=== PATIENT | female | born 1990 | race Caucasian/White ===

== ENCOUNTER 2017-04-18 16:02 | Outpatient (CLI) | payer OTHER ==
--- NOTE | 2017-04-18 16:31 | RADRPT ---
PROCEDURE: OB ultrasound for biophysical profile CLINICAL INDICATION: Gestational diabetes TECHNIQUE: Multiple sonographic images of the pelvis were obtained. Transabdominal views of the g ravid uterus are available for review. The images were reviewed on a PACS workstation. COMPARISON: None FINDINGS: breathing movement = 2/2 tone = 2/2 motion = 2/2 DENISE = 2/2 DENISE = 14.5 cm Single live intrauterine with cardiac activity of 136 bpm. position is cephal ic. The placenta is anterior. IMPRESSION: 1. Single live intrauterine gestation. 2. Biophysical profile = 8/8. 3. DENISE = 14.5 cm. RPTAT: HH .Audra Goodwin MD, MD Date Time Electronically viewed and signed by .Audra Goodwin MD, on 04/18/2017 16:30 .G/
[2017-04-18] MEDS ORDERED: PREN-93 PO (16:59)
[2017-04-18] MEDS ORDERED: FER325 PO (16:59)
--- NOTE | 2017-04-18 17:19 | TRIAGE ---
OB Triage Datetime Report Generated by CPN: 04/18/2017 17:19 Datetime: 04/18/2017 16:57 Assessment Type: Triage Maternal Assessment Level of Consciousness: Fully Conscious DTR's/Clonus: DTRs 2+; No Clonus Headache: Denies Blurred Vision: No Respiratory Effort: Unlabored; Regular Rhythm; Equal Expansion Breath Sounds, Left: Clear and Equal Breath Sounds, Right: Clear and Equal Nausea/Vomiting: Denies RUQ Epigastric Pain: Denies Lower Extremities Edema: None Degree: None Upper Extremities Edema: None Degree: None Facial Edema: None Fall Risk Assessment History of Falling: (0) No Secondary Diagnosis: (0) No Ambulatory Aid: (0) Bedrest/Nurse Assist IV Therapy: (0) No Gait: (0) Normal/Bedrest/Immobile Mental Status: (0) Oriented to Own Ability Fall Score: 0 Fall Risk Score Definition: No Risk: No action required Datetime: 04/18/2017 16:45 Labor Evaluation Monitor Mode: External Heart Rate Monitor Mode: External US Datetime: 04/15/2017 15:17 Time of Arrival: 04/18/2017 15:57 EGA: 35.3 Arrived By: Ambulatory Arrived From: Home Chief Complaint: pt here for NST/BPP FOR GDM Movement: Present Contractions: Denies/Absent Rupture of Membranes: Denies Vaginal Bleeding: None Vaginal Discharge: Denies Recent Sexual Intercouse: Denies Abdominal Trauma: Not Applicable Patient Complaints: None Time Provider Notified: 04/18/2017 17:05 Provider Notified: ROGELIO Initial Plan: NST/BPP
[2017-04-18] MEDS ORDERED: NPH,100V SQ (17:24)
[2017-04-18] MEDS ORDERED: INSU100C SQ ×2 (17:24)
[2017-04-18] MEDS ORDERED: NPH SQ (17:24)
--- NOTE | 2017-04-18 17:31 | PN ---
Triage Information Date/Time Reason for visit: Antepartum testing Weeks of Gestation 35 weeks /Para Diabetes: gestational Diabetes management: insulin controlled Hypertention: none Objective Heart Rate: 130's Heart Rate Comments Category I Results/Medications Imaging Results [facility] 12/30 Disposition: Discharge SCOTT MERCADO MD Apr 18, 2017 17:31
== END 2017-04-18 17:35 | disposition home or self-care (01) ==
LOC: OBT 16:02 → L-D 16:03 → OBT 17:35
PROVIDERS: ATTEND Obstetrics & Gynecology
DX: O24.414 Gestational diabetes mellitus in pregnancy, insulin controlled (principal); Z3A.35 35 weeks gestation of pregnancy
CPT/HCPCS: 76818; Z7500; G0463

== ENCOUNTER 2017-05-13 05:56 | Inpatient (IN) | payer OTHER ==
[~2017-05-13] VITALS: Ht 162.6 cm; Wt 97.9 kg
[~2017-05-13 05:56] MED LIST: FER325 PO; INSU100C SQ; NPH SQ; NPH,100V SQ; PREN-93 PO
[2017-05-13] MEDS ORDERED: LACTATED RINGER'S 1,000 ML IV SCH (06:10)
[2017-05-13 06:11] VITALS: Ht 162.6 cm; Wt 97.9 kg
[2017-05-13 06:19] VITALS: BP 136/89; PULSE 66; RESP 18
[2017-05-13] MEDS ORDERED: OXYTOCIN 30 UNITS/LR 500 ML IV PRN ×2 (06:30→14:30)
[2017-05-13] MEDS ORDERED: MISOPROSTOL 200 MCG TAB PR PRN ×2 (06:30→14:30)
[2017-05-13] MEDS ORDERED: CEFAZOLIN 2 GM/50 ML (PMX) 50 ML IV SCH (06:30)
[2017-05-13] MEDS ORDERED: METHYLERGONOVINE 0.2 MG INJ IM PRN ×2 (06:30→14:30)
[2017-05-13] MEDS ORDERED: CARBOPROST 250 MCG INJ IM PRN ×2 (06:30→14:30)
[2017-05-13] MEDS ORDERED: CALC-143 PO (06:35)
[2017-05-13] MEDS ORDERED: NPH,100V SQ (06:36)
[2017-05-13 06:40] LABS: BASOPHILS % 0.3 % (0.0-2.0); EOSINOPHILS # 0.2 10^3/ul (0.0-0.5); EOSINOPHILS % 1.5 % (0.0-7.0); HEMATOCRIT 36.6 % (37.0-47.0); HEMOGLOBIN 12.8 g/dl (12.0-16.0); LYMPHOCYTES # 2.3 10^3/ul (0.8-2.9); LYMPHOCYTES % 22.5 % (15.0-51.0); MEAN CORPUSCULAR HEMOGLOBIN 28.7 pg (29.0-33.0); MEAN CORPUSCULAR VOLUME 82.1 fl (82.0-101.0); MEAN PLATELET VOLUME 11.8 fl (7.4-10.4); MONOCYTE # 0.4 10^3/ul (0.3-0.9); MONOCYTES % 3.7 % (0.0-11.0); NEUTROPHIL # 7.1 10^3/ul (1.6-7.5); NEUTROPHILS % 70.6 % (39.0-77.0); PLATELET COUNT 245 10^3/UL (140-415); RED BLOOD COUNT 4.46 10^6/ul (4.20-5.40)
[2017-05-13 07:00] LABS: INR 0.89; PROTIME 12.1 Sec (11.9-14.9); PT RATIO 0.9
[2017-05-13 07:01] LABS: PARTIAL THROMBOPLASTIN TIME 31.5 Sec (25.0-35.0)
[2017-05-13] MEDS ORDERED: LACTATED RINGER'S 1,000 ML IV ONE (07:18)
[2017-05-13] MEDS ORDERED: CITRIC ACID/SODIUM CITRATE 15 ML CUP ONE (07:22)
[2017-05-13] MEDS ORDERED: FAMOTIDINE 20 MG INJ ONE (07:23)
[2017-05-13] MEDS ORDERED: METOCLOPRAMIDE 10 MG INJ ONE (07:24)
[2017-05-13] MEDS ORDERED: FAMOTIDINE 20 MG INJ IV ONE (07:30)
[2017-05-13] MEDS ORDERED: METOCLOPRAMIDE 10 MG INJ IV ONE (07:30)
[2017-05-13] MEDS ORDERED: CITRIC ACID/SODIUM CITRATE 15 ML CUP PO ONE (07:30)
--- NOTE | 2017-05-13 07:52 | HP ---
Date/Time of Note Date/Time of Note DATE: 05/13/17 TIME: 07:50 OB - History Hx of Present Chief Complaint: scheduled c/s Estimated Due Date: May 20, 2017 : 3 Para: 1 Spontaneous : 1 Therapeutic : 0 Care: Good Care Ultrasounds: Normal mid trimester US Obstetrical Complications: Gestational Diabetes Medical Complications: None Past Family/Social History * Past Medical, Surgical, Family and Obstetric Histories reviewed from chart. GBS Status: Positive OB Admission Exam Vital Signs Vital Signs Vital Signs Date Time Temp Pulse Resp B/P Pulse Ox O2 Delivery O2 Flow Rate FiO2 05/13/17 06:19 98.0 66 18 136/89 99 Room Air Physical Exam HEENT: WNL Heart: Rhythm Normal Lungs: Clear, Equal Abdomen: WNL Extremities: Normal Reflexes: Normal Heart Rate: 120's Decelerations: No Decelerations Varibility: Moderate Last 72 hours Lab Results CBC & BMP 05/13/17 06:30 OB Assessment/Plan Reason for admission: section Plan: Section SCOTT MERCADO MD May 13, 2017 07:52
[2017-05-13] MEDS ORDERED: morphine SULFATE/PF (10 MG/10 ML) INJ ONE (07:57)
[2017-05-13] MEDS ORDERED: FENTAnyl 50 MCG/ML VIAL ONE (07:57)
[2017-05-13] MEDS ORDERED: PHENYLephrine (100 MCG/ML) 5ML SYG ONE (08:13)
[2017-05-13] MEDS ORDERED: PROCHLORPERAZINE 10 MG INJ IV PRN (08:30)
[2017-05-13] MEDS ORDERED: NALOXONE (0.4 MG/ML) INJ IV PRN (08:30)
[2017-05-13] MEDS ORDERED: HYDROmorphONE 0.5 MG/0.5 ML SYG IV PRN ×2 (08:30)
[2017-05-13] MEDS ORDERED: MEPERIDINE 25 MG INJ IV PRN (08:30)
[2017-05-13] MEDS ORDERED: DIPHENHYDRAMINE 50 MG INJ IV PRN ×2 (08:30)
[2017-05-13] MEDS ORDERED: ONDANSETRON 4 MG INJ IV PRN ×2 (08:30)
[2017-05-13] MEDS ORDERED: FENTAnyl 50 MCG/ML VIAL IV PRN ×3 (08:30)
[2017-05-13] MEDS ORDERED: ZOLPIDEM 5 MG TAB PO PRN (08:30)
[2017-05-13] MEDS ORDERED: HYDROmorphONE (0.2 MG/ML) 10ML SYG IV PRN ×3 (08:30)
[2017-05-13] MEDS ORDERED: KETOROLAC 30 MG INJ IV PRN (08:30)
[2017-05-13] MEDS ORDERED: ONDANSETRON 4 MG INJ ONE (08:31)
[2017-05-13] MEDS ORDERED: EPHEDrine SULFATE 50 MG/5 ML SYG ONE (08:36)
[2017-05-13] MEDS ORDERED: OXYTOCIN 30 UNITS/LR 500 ML IV ONE (08:49)
--- NOTE | 2017-05-13 09:40 | OPPN ---
Date/Time of Note Date/Time of Note DATE: 05/13/17 TIME: 09:38 Operative Report Planned Procedure Procedure date May 13, 2017 Procedure(s) Repeat c/s Performed by Scott Mercado MD Division Sergeant Dr Mccallum Anesthesiologist: KAITY GAMEZ MD Pre-procedure diagnosis Previous c/s Anesthesia Type: spinal Post-Procedure Post-procedure diagnosis Same Findings Live Baby [], Apgars [] and [], weight [], position [], [] presentation []cord. Estimated Blood Loss: 500 - 600 mls (600 ml) Specimen(s) none Grafts/Implant(s) none Complication(s) none SCOTT MERCADO MD May 13, 2017 09:40
[2017-05-13 09:51] LABS: ALBUMIN/GLOBULIN RATIO 0.71; BILIRUBIN,INDIRECT 0.6 mg/dl (0-1.1); BILIRUBIN,TOTAL 0.6 mg/dl (0.2-1.3); CREATININE 0.82 mg/dl (0.44-1.00); POTASSIUM 4.3 mmol/L (3.5-5.1); TOTAL PROTEIN 7.2 g/dl (6.1-8.1)
[2017-05-13 10:23] LABS: ADD UMIC NO; UR ASCORBIC ACID NEGATIVE (NEGATIVE); UR BILIRUBIN (Dip) NEGATIVE (NEGATIVE); UR BLOOD (Dip) NEGATIVE (NEGATIVE); UR CLARITY CLEAR (CLEAR); UR COLOR YELLOW (YELLOW); UR GLUCOSE (Dip) NEGATIVE (NEGATIVE); UR KETONES (Dip) NEGATIVE (NEGATIVE); UR LEUKOCYTE ESTERASE (Dip) NEGATIVE Leu/ul (NEGATIVE); UR NITRITE (Dip) NEGATIVE (NEGATIVE); UR SPECIFIC GRAVITY (Dip) 1.013 (1.003-1.030); UR TOTAL PROTEIN (Dip) NEGATIVE (NEGATIVE); UR UROBILINOGEN (Dip) NEGATIVE (NEGATIVE)
--- NOTE | 2017-05-13 10:42 | OPR ---
DATE OF OPERATION: 05/13/2017 PREOPERATIVE DIAGNOSES: 1. at 39 weeks with insulin-dependent diabetes. 2. Previous section. POSTOPERATIVE DIAGNOSES: 1. at 39 weeks with insulin-dependent diabetes. 2. Previous section. OPERATION PERFORMED: Repeat low transverse section. SURGEON: Dr. Mayes OSHA INSPECTOR: Elijah Mccallum MD ANESTHESIA: Spinal. ANESTHESIOLOGIST: Dr. Tompkins PROCEDURE: The patient was taken to the operating room and placed on the operating table. After noguera ccessful spinal anesthesia was given, the patient was placed in supine position. The area was prepa red and draped in the usual sterile fashion. Spinal anesthesia was tested and was satisfactory. Us ing a scalpel, Pfannenstiel incision was made about , incision was carried down to the fascia. The fascia was incised and extended bilaterally with Huffman scissors. Two Radha's were used to sepa rate the fascia from the muscle. The muscle was dissected down to peritoneum. The peritoneum was s ecured with 2 Kellys and incised with Metzenbaum scissors. Using a scalpel, a small transverse inci staci was made in the lower segment of the uterus. Upon entering the uterine cavity, bandage scissor s were inserted to extend the incision bilaterally, curved up. Baby was delivered from cephalic presentation. After suctioning clear of amniotic fluid, the baby w as handed off to the team in attendance. Apgars were 8 and 9. Placenta was delivered with out difficulty. Uterus was closed with #1 Monocryl continuous locked. After assuring hemostasis, b oth ovaries and tubes were inspected, all looked normal. The peritoneum was closed with 2-0 Vicryl continuous. The fascia was closed with #1 Vicryl continuous in 2 segments. Subcutaneous tissue was reapproximated with 2-0 plain, skin was closed with tuan. ESTIMATED BLOOD LOSS: 600 mL. COUNTS: All counts were correct. Dictated By: SCOTT MAYES MD GD/NTS Conf#: [id number] DID#: [id number] CC: ELIJAH MCCALLUM MD;*EndCC*
[2017-05-13] MEDS: KETOROLAC 30 MG INJ IV PRN (11:00)
[2017-05-13] MEDS: OXYTOCIN 30 UNITS/LR 500 ML IV SCH ×2 (11:23→13:12)
[2017-05-13] MEDS ORDERED: OXYTOCIN 30 UNITS/LR 500 ML IV SCH (14:08)
[2017-05-13] MEDS: LACTATED RINGER'S 1,000 ML IV SCH ×2 (14:08→22:13)
[2017-05-13 14:10] VITALS: BP 128/71; PULSE 78; RESP 18
[2017-05-13] MEDS ORDERED: LANOLIN 7 GM TUBE TOP PRN (14:30)
[2017-05-13] MEDS ORDERED: OXYCODONE/ACETAMINOPHEN (5/325) TAB PO PRN ×2 (14:30)
[2017-05-13 16:00] VITALS: BP 146/76; PULSE 73; RESP 18
[2017-05-13 20:00] VITALS: BP 132/82; PULSE 20; RESP 20
[2017-05-13] MEDS: SENNA/DOCUSATE NA (8.6MG/50MG) TAB PO SCH (21:00)
[2017-05-13] MEDS: IBUPROFEN 800 MG TAB PO SCH (22:00)
[2017-05-14] VITALS (7 sets, daily range): BP systolic 116–144; BP diastolic 61–100; PULSE 51–76; RESP 18–20
[2017-05-14] MEDS: KETOROLAC 30 MG INJ IV PRN (00:10)
[2017-05-14] MEDS: IBUPROFEN 800 MG TAB PO SCH ×3 (06:00→21:28)
[2017-05-14] MEDS: LACTATED RINGER'S 1,000 ML IV SCH ×2 (06:20→14:08)
[2017-05-14] MEDS: FERROUS SULFATE (EC) 325 MG TAB PO SCH (09:34)
[2017-05-14] MEDS: SENNA/DOCUSATE NA (8.6MG/50MG) TAB PO SCH ×2 (09:35→21:28)
[2017-05-14 10:06] LABS: BASOPHILS % 0.4 % (0.0-2.0); EOSINOPHILS # 0.1 10^3/ul (0.0-0.5); EOSINOPHILS % 0.6 % (0.0-7.0); HEMATOCRIT 30.3 % (37.0-47.0); HEMOGLOBIN 10.1 g/dl (12.0-16.0); LYMPHOCYTES % 20.4 % (15.0-51.0); MEAN CORPUSCULAR HEMOGLOBIN 27.8 pg (29.0-33.0); MEAN CORPUSCULAR HGB CONC 33.3 g/dl (32.0-37.0); MEAN CORPUSCULAR VOLUME 83.5 fl (82.0-101.0); MEAN PLATELET VOLUME 11.7 fl (7.4-10.4); MONOCYTE # 0.3 10^3/ul (0.3-0.9); MONOCYTES % 3.5 % (0.0-11.0); NEUTROPHIL # 7.2 10^3/ul (1.6-7.5); NEUTROPHILS % 74.3 % (39.0-77.0); PLATELET COUNT 235 10^3/UL (140-415); RED BLOOD COUNT 3.63 10^6/ul (4.20-5.40); RED CELL DISTRIBUTION WIDTH 13.9 % (11.5-14.5); WHITE BLOOD COUNT 9.7 10^3/ul (4.8-10.8)
--- NOTE | 2017-05-14 20:45 | QN ---
Documentation Comment No complaint Afebrile VSS Abdomen soft ND POD #1 Stable Ambulate Advance diet. SCOTT MERCADO MD May 14, 2017 20:45
[2017-05-15] VITALS: BP 129/69; RESP 18
[2017-05-15 04:00] VITALS: BP 130/65; PULSE 67; RESP 18
[2017-05-15] MEDS: IBUPROFEN 800 MG TAB PO SCH ×3 (05:24→21:25)
[2017-05-15 08:00] VITALS: BP 130/67; PULSE 73; RESP 20
[2017-05-15] MEDS: SENNA/DOCUSATE NA (8.6MG/50MG) TAB PO SCH ×2 (08:30→21:25)
[2017-05-15] MEDS: FERROUS SULFATE (EC) 325 MG TAB PO SCH (08:31)
[2017-05-15] MEDS ORDERED: INFLUENZA VIRUS VACCINE 0.5 ML (DISPENSING) IM* ONE (09:00)
--- NOTE | 2017-05-15 11:05 | QN ---
Documentation Comment No complaint Afebrile VSS Abdomen soft ND POD #2 Stable Continue present care Endocrinology consult for management of DM. SCOTT MERCADO MD May 15, 2017 11:05
[2017-05-15 12:25] VITALS: BP 135/77; PULSE 78; RESP 20
--- NOTE | 2017-05-15 15:02 | CONS ---
Date/Time of Note Date/Time of Note DATE: 05/15/17 TIME: 14:57 Assessment/Plan Assessment/Plan Problems: (1) Metabolic syndrome Status: Chronic Comment: She had had previous gestational glucose intolerance. 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 I have counseled her and her spouse about the rationale for treatment risks and benefits of treatment and goals of treatment. Ideally a slow gradual weight loss protocol to be within 20% of her ideal body weight would be ideal. In the meantime she will be on low-dose metformin. Please note this patient is not planning to breast- feed (2) Gestational diabetes mellitus Status: Resolved Comment: She is now . We are going to switch over to an oral regimen. Qualifiers: Qualified Code: O24.414 - Insulin controlled gestational diabetes mellitus ( GDM) in third trimester (3) History of section Onset Date: ~ 05/13/2017 Comment: Noted and recovering well Consultation Date/Type/Reason Admit Date/Time May 13, 2017 at 05:56 Date of Consultation: May 15, 2017 Type of Consultation: Endocrinology Reason for Consultation History of gestational diabetes who came in with diabetic . Referring Provider: SCOTT MERCADO MD Hx of Present Illness Karli 27-year-old female Ab1 immediately post C- section. In her last successful she had had gestational diabetes which resolved . Please note she does not see doctors and so her exact knowledge of what her status was may not have been fully negative it simply unknown. Constitutional: no complaints Eyes: no complaints ENT: no complaints Respiratory: no complaints Cardiovascular: no complaints Gastrointestinal: no complaints Genitourinary: no complaints Past Medical History Medical History: other (Gestational diabetes; Ab1) Past Surgical History Past Surgical Hx: other Family History Significant Family History: diabetes Social History Alcohol Use: none Smoking Status: Never smoker Drug Use: none Exam/Review of Systems Vital Signs Vitals Vital Signs Date Time Temp Pulse Resp B/P Pulse Ox O2 Delivery O2 Flow Rate FiO2 05/15/17 08:00 98.0 73 20 130/67 Room Air 05/14/17 08:16 97 21 Intake and Output 05/14/17 05/14/17 05/15/17 15:00 23:00 07:00 Intake Total 125 ml 380 ml Output Total 800 ml Balance -675 ml 380 ml Exam Constitutional: alert, oriented Neck: non-tender, supple Respiratory: clear to auscultation, normal air movement Cardiovascular: nl pulses, regular rate and rhythm Gastrointestinal: soft Skin: other (Pseudo-acanthosis nigricans) Results Result Diagram: 05/14/17 0939 05/13/17 0630 Results 24 hrs Laboratory Tests Test 05/14/17 22:04 05/15/17 08:04 Bedside Glucose 215 116 Medications Medications Current Medications Oxycodone/ Acetaminophen (Percocet (5/ 325)) 1 tab Q4H PRN PO PAIN LEVEL 4-6; Start 05/13/17 at 14:30 Oxycodone/ Acetaminophen (Percocet (5/ 325)) 2 tab Q4H PRN PO PAIN LEVEL 7-10 Last administered on 05/14/17 09:36; Admin Dose 2 TAB; Start 05/13/17 at 14: 30 Ibuprofen (Motrin) 800 mg Q8 PO Last administered on 05/15/17 14:08; Admin Dose 800 MG; Start 05/13/17 at 22:00 Simethicone (Mylicon) 160 mg Q8H PRN PO DISTENSION/GAS/BLOATING Last administered on 05/14/17 09:36; Admin Dose 160 MG; Start 05/13/17 at 14:30 Senna/Docusate Sodium (Senokot-S) 1 tab BID PO Last administered on 05/15/17 08:30; Admin Dose 1 TAB; Start 05/13/17 at 21:00 Diphtheria/ Tetanus/Acell Pertussis 0.5 ml 0.5 ml ONCE ONCE IM* ; Start at 09:00; Stop 05/16/17 at 09:01 Oxytocin/Lactated Ringer's 500 ml @ 0 mls/hr ONCE PRN IV For Hemorrhage Management; Start 05/13/17 at 14:30 Methylergonovine Maleate (Methergine) 0.2 mg ONCE PRN IM VAGINAL BLEEDING; Start 05/13/17 at 14:30 Carboprost Tromethamine (Hemabate) 250 mcg ONCE PRN IM VAGINAL BLEEDING; Start 05/13/17 at 14:30 Misoprostol (Cytotec) 1,000 mcg ONCE PRN VT VAGINAL BLEEDING; Start 05/13/17 at 14:30 Ferrous Sulfate (Ferrous Sulfate (Ec)) 325 mg DAILY PO Last administered on t 08:31; Admin Dose 325 MG; Start 05/14/17 at 09:00 EDMUNDO WOLFF MD May 15, 2017 15:02
[2017-05-15] MEDS ORDERED: GLUCOSE GEL 15 GRAM TUBE PO PRN ×2 (15:30)
[2017-05-15] MEDS ORDERED: GLUCOSE GEL 15 GRAM TUBE BUCCAL PRN (15:30)
[2017-05-15] MEDS ORDERED: DEXTROSE 50% 50 ML SYRINGE IV PRN ×2 (15:30)
[2017-05-15] MEDS ORDERED: GLUCAGON 1 MG INJ IM PRN (15:30)
[2017-05-15 16:00] VITALS: BP 130/66; RESP 18
[2017-05-15] MEDS: metFORMIN 500 MG TAB PO SCH (18:04)
[2017-05-15 20:10] VITALS: PULSE 62; RESP 18
[2017-05-16] VITALS (7 sets, daily range): BP systolic 137–155; BP diastolic 78–92; PULSE 52–84; RESP 18–20
[2017-05-16] MEDS: IBUPROFEN 800 MG TAB PO SCH ×3 (05:56→21:31)
[2017-05-16] MEDS ORDERED: DIPHTH/TET/ACEL PERTUSS (ADULT) 0.5 ML VIAL IM* ONE (09:00)
[2017-05-16] MEDS: FERROUS SULFATE (EC) 325 MG TAB PO SCH (09:51)
[2017-05-16] MEDS: SENNA/DOCUSATE NA (8.6MG/50MG) TAB PO SCH ×2 (09:51→21:31)
--- NOTE | 2017-05-16 12:03 | CONS ---
Date/Time of Note Date/Time of Note DATE: 05/16/17 TIME: 12:02 Assessment/Plan Assessment/Plan Chief Complaint/Hosp Course Karli 27-year-old female Ab1 immediately post C- section. In her last successful she had had gestational diabetes which resolved . Please note she does not see doctors and so her exact knowledge of what her status was may not have been fully negative it simply unknown. Problems: (1) Metabolic syndrome Status: Chronic Comment: She is coming off of her second episode of gestational diabetes. On exam she has evidence of insulin resistance syndrome. I have once again re- counseled her and her that one of the prime therapeutics here would be a weight loss protocol. She will be on medicine using metformin for 6 months during which time she will lose weight. After that we will discontinue the medicine and see how her metabolism does. With weight loss I expect excellent outcome. At this time I will sign off her case she should be discharged with a prescription for the metformin 500 twice daily for a 6 month supply. I.e. 60 pills with 5 refills Consultation Date/Type/Reason Admit Date/Time May 13, 2017 at 05:56 Initial Consult Date 05/15/17 Type of Consultation: Endocrinology Reason for Consultation History of gestational diabetes with insulin resistance syndrome. Referring Provider: SCOTT MERCADO MD 24 HR Interval Summary Constitutional: no complaints Exam/Review of Systems Vital Signs Vitals Vital Signs Date Time Temp Pulse Resp B/P Pulse Ox O2 Delivery O2 Flow Rate FiO2 05/16/17 08:00 97.8 65 18 150/78 05/16/17 04:20 Room Air 05/14/17 08:16 97 21 Results No change in exam Result Diagram: 05/14/17 0939 05/13/17 0630 Results 24 hrs Laboratory Tests Test 05/15/17 15:22 05/15/17 18:03 05/15/17 21:27 05/16/17 08:34 Bedside Glucose 128 164 136 106 Test 05/16/17 10:41 Bedside Glucose 124 Medications Medications Current Medications Oxycodone/ Acetaminophen (Percocet (5/ 325)) 1 tab Q4H PRN PO PAIN LEVEL 4-6; Start 05/13/17 at 14:30 Oxycodone/ Acetaminophen (Percocet (5/ 325)) 2 tab Q4H PRN PO PAIN LEVEL 7-10 Last administered on 05/14/17 09:36; Admin Dose 2 TAB; Start 05/13/17 at 14: 30 Ibuprofen (Motrin) 800 mg Q8 PO Last administered on 05/16/17 05:56; Admin Dose 800 MG; Start 05/13/17 at 22:00 Simethicone (Mylicon) 160 mg Q8H PRN PO DISTENSION/GAS/BLOATING Last administered on 05/14/17 09:36; Admin Dose 160 MG; Start 05/13/17 at 14:30 Senna/Docusate Sodium 1 tab 1 tab BID PO Last administered on 05/16/17 09:51 ; Admin Dose 1 TAB; Start 05/13/17 at 21:00 Oxytocin/Lactated Ringer's 500 ml @ 0 mls/hr ONCE PRN IV For Hemorrhage Management; Start 05/13/17 at 14:30 Methylergonovine Maleate (Methergine) 0.2 mg ONCE PRN IM VAGINAL BLEEDING; Start 05/13/17 at 14:30 Carboprost Tromethamine (Hemabate) 250 mcg ONCE PRN IM VAGINAL BLEEDING; Start 05/13/17 at 14:30 Misoprostol (Cytotec) 1,000 mcg ONCE PRN [place] VAGINAL BLEEDING; Start 05/13/17 at 14:30 Ferrous Sulfate (Ferrous Sulfate (Ec)) 325 mg DAILY PO Last administered on 09:51; Admin Dose 325 MG; Start 05/14/17 at 09:00 Miscellaneous Information 1 ea NOTE XX ; Start 05/15/17 at 15:30 Glucose (Glutose) 15 gm Q15M PRN PO DECREASED GLUCOSE; Start 05/15/17 at 15:30 Glucose (Glutose) 22.5 gm Q15M PRN PO DECREASED GLUCOSE; Start 05/15/17 at 15: 30 Dextrose (D50w Syringe) 25 ml Q15M PRN IV DECREASED GLUCOSE; Start 05/15/17 at 15:30 Dextrose (D50w Syringe) 50 ml Q15M PRN IV DECREASED GLUCOSE; Start 05/15/17 at 15:30 Glucagon (Glucagen) 1 mg Q15M PRN IM DECREASED GLUCOSE; Start 05/15/17 at 15: 30 Glucose (Glutose) 15 gm Q15M PRN BUCCAL DECREASED GLUCOSE; Start 05/15/17 at 15:30 EDMUNDO WOLFF MD May 16, 2017 12:03
--- NOTE | 2017-05-16 13:57 | QN ---
Documentation Comment No complaint Afebrile VSS Abdomen soft ND POD #3 Stable Continue with metformin per Endocrinology Monitor BP. SCOTT MERCADO MD May 16, 2017 13:57
[2017-05-16] MEDS ORDERED: NIFEdipine (XL) 30 MG TAB PO ONE (15:00)
[2017-05-16] MEDS: metFORMIN 500 MG TAB PO SCH (18:10)
[2017-05-17 01:00] VITALS: BP 131/80; PULSE 78; RESP 19
[2017-05-17 04:56] VITALS: BP 140/74; PULSE 75; RESP 20
[2017-05-17] MEDS: IBUPROFEN 800 MG TAB PO SCH ×2 (06:16→13:32)
[2017-05-17] MEDS: FERROUS SULFATE (EC) 325 MG TAB PO SCH (08:49)
[2017-05-17] MEDS: SENNA/DOCUSATE NA (8.6MG/50MG) TAB PO SCH (08:49)
[2017-05-17 08:50] VITALS: BP 146/80; PULSE 80; RESP 18
[2017-05-17] MEDS ORDERED: NIFEdipine (XL) 30 MG TAB PO SCH (09:00)
--- NOTE | 2017-05-17 11:51 | DS ---
Date/Time of Note Date/Time of Note DATE: 05/17/17 TIME: 11:50 Obstetrical Discharge Record Final Diagnosis Final Diagnosis: Term delivered Vaginal Delivery Obstetrical Delivery: Bilateral Tubal Ligation Section Section: Repeat Complications Insulin Dependent Diabete Condition on Discharge Physical Assessment Voiding: Yes Bowel Movement: Yes Breast: Soft, non-tender, Filling Fundus: Firm Abdomen and Incision: incision intact Calf Tenderness: No Patient Condition: Stable SCOTT MERCADO MD May 17, 2017 11:51
== END 2017-05-17 18:09 | disposition home or self-care (01) | DRG 766 ==
LOC: L-D 05:56 → PP1 14:04
PROVIDERS: ADMIT Obstetrics & Gynecology; ATTEND Obstetrics & Gynecology
PROC: 10D00Z1 Extraction of Products of Conception, Low, Open Approach (ICD-10-PCS; principal; 2017-05-13 07:30)
DX: O24.424 Gestational diabetes mellitus in childbirth, insulin controlled (principal); E88.81 Metabolic syndrome and other insulin resistance; O99.283 Endocrine, nutritional and metabolic diseases complicating pregnancy, third trimester; Z37.0 Single live birth; Z3A.39 39 weeks gestation of pregnancy
CPT/HCPCS: 80053; 81003; 82962; 84560; 85025; 85610; 85730; 86592; 86850; 86900; 86901; 87340; 90686; 90715; 94760; 99464; J0690; J1885; J2274; J2370; J2405; J2590; J2765; J3010; J7120